=== PATIENT | male | born 1995 | race Caucasian/White ===

== ENCOUNTER → 2021-06-09 | Outpatient (CLI) | payer OTHER ==
--- NOTE | 2021-06-20 14:24 | PFR/MVV ---
[facility] [address] [address] PULMONARY FUNCTION MVV/REPORT Name: SILVIA BENDER LB Room #: REG [facility]#: [id number] Admission: 06/09/21 Attend Phys: Mata Rodriguez DO Discharge: Date of : 89 Report #: [id number] THIS REPORT FOR: //name// >> SPIROMETRY: (BTPS) Height: 72 in cm Weight: 225 lbs kg Exam Date: 06/09/21 PRE-RX POST-RX PRED BEST %PRED BEST %PRED %CHG FVC LITERS . 5.81 . 4.29 . 74 . 6.79 . 117 . 59 FEV1 LITERS . 4.60 . 1.84 . 40 . 5.29 . 115 . 187 FEV1/FVC % . 79 . 43 . 54 . 78 . 99 . 81 MKS21-68% L/Sec . 4.82 . 1.18 . 25 . 4.90 . 102 . 314 PEF L/SEC . 10.18 . 2.89 . 28 . 8.09 . 79 . 180 FEF50/FIF50 UNITLESS . 6.31 . 1.69 . 27 . 6.29 . 100 . 272 MVV L/Min . . . f 1/Min . . . >> LUNG VOLUMES: (BTPS) PRE-RX POST-RX PRED AVG %PRED AVG %PRED %CHG VC Liters . 5.81 . 4.29 . 74 . . . TLC Liters . 7.68 . 5.19 . 68 . . . RV Liters . 1.90 . 0.91 . 48 . . . RV/TLC % . 25 . 17 . 70 . . . FRC PL Liters . 3.71 . 2.41 . 65 . . . FRC N2 Liters . 3.71 . . . . . ERV Liters . 1.92 . 1.38 . 72 . . . IC Liters . 3.84 . 2.78 . 72 . . . >> DIFFUSION: DLCO ml/Min/mmHg . 35.8 . 35.9 . 100 . . . DL [place] ml/Min/mmHg . 35.8 . 35.9 . 100 . . . DLCO/VA ml/Min/mmHg . 4.64 . 6.07 . 131 . . . VA Liters . 7.54 . 5.91 . 78 . . . COMMENTS: COMMENTS: >> RESISTANCE: [facility] [address] [place] [address] PULMONARY FUNCTION MVV/REPORT Name: SILVIA BENDER Room #: REG [facility] Sara.#: [id number] Admission: 06/09/21 Attend Phys: Mata Rodriguez DO Discharge: Date of : 89 Report #: [id number] PRE-RX PRED AVG %PRED Raw Total cmH20/L/Sec . . 5.26 . Raw Insp cmH20/L/Sec . . 7.52 . Raw Exp cmH20/L/Sec . . 7.22 . Raw cmH20/L/Sec . 1.20 . 4.86 . 405 Gaw L/Sec/cmH20 . 0.889 . 0.206 . 23 sRaw cmH20 Sec . 4.45 . 13.42 . 302 sGaw l/cmH20 Sec . 0.225 . 0.075 . 33 Vtq Liters . . 2.76 . # = OUTSIDE 95% CONFIDENCE INTERVAL CALIBRATION: PRED: 3.00 ACTUAL: EXP 3.01 INSP 3.02 [place] [address]-06 [place] [id number] N-[id number] >> INTERPRETATION/IMPRESSION: DATE OF SERVICE: 06/09/2021 PULMONARY FUNCTION STUDY Review of pulmonary function flow loops is variable. The patient did have difficulty following commands and poor effort prior to the delivery of the bronchodilator therapy. Post-bronchodilator therapy, the patient's lung function was normal. FEV1 was 5.29 liters (115%), FVC was 6.79 liters (117% predicted). FEV1/FVC ratio was 78% post-bronchodilator therapy. Diffusing capacity appears normal. Lung volumes, flow loops are variable and do not meet ATS criteria for evaluation. <ELECTRONICALLY SIGNED> By: Reji King MD 06/20/21 1424 Reji King MD /nt
== END ==
LOC: PUL 10:43
PROVIDERS: ATTEND Chiropractor
DX: R06.02 Shortness of breath (principal); M41.84 Other forms of scoliosis, thoracic region